=== PATIENT | male | born 1955 | race Caucasian/White ===

== ENCOUNTER → 2020-03-08 12:04 | Outpatient (CLI) | payer OTHER, SELFPAY ==
[2020-03-08 14:02] LABS: Prostate Specific Antigen 0.872 ng/mL (0.10-4.00)
== END ==
PROVIDERS: Referring Provider Specialist; Visit Provider Specialist
DX: N40.0 Benign prostatic hyperplasia without lower urinary tract symptoms (principal)
CPT/HCPCS: 36415; 84153

== ENCOUNTER → 2021-05-16 10:32 | Outpatient (CLI) | payer MEDICARE, OTHER, SELFPAY ==
[2021-05-16 11:58] LABS: Prostate Specific Antigen 1.04 ng/mL (0.10-4.00)
== END ==
PROVIDERS: Referring Provider Specialist; Visit Provider Specialist
DX: N40.1 Benign prostatic hyperplasia with lower urinary tract symptoms (principal); N13.8 Other obstructive and reflux uropathy; Z87.440 Personal history of urinary (tract) infections; Z80.42 Family history of malignant neoplasm of prostate
CPT/HCPCS: 36415; 51798; 81002; 84153; 99213

== ENCOUNTER → 2022-05-03 09:14 | Outpatient (CLI) | payer MEDICARE, OTHER, SELFPAY | PROVIDERS: Referring Provider Specialist; Visit Provider Specialist | DX: N40.1 Benign prostatic hyperplasia with lower urinary tract symptoms (principal); N13.8 Other obstructive and reflux uropathy; Z87.440 Personal history of urinary (tract) infections | CPT/HCPCS: 36415; 51798; 81002; 84153; 99213 ==

== ENCOUNTER → 2023-04-16 08:42 | Outpatient (CLI) | payer MEDICARE, OTHER, SELFPAY ==
[2023-04-16 10:06] LABS: Prostate Specific Antigen 1.26 ng/mL (0.10-4.00)
== END ==
PROVIDERS: Referring Provider Specialist; Visit Provider Specialist
DX: N40.1 Benign prostatic hyperplasia with lower urinary tract symptoms (principal); N13.8 Other obstructive and reflux uropathy; N52.1 Erectile dysfunction due to diseases classified elsewhere; Z80.42 Family history of malignant neoplasm of prostate; Z87.440 Personal history of urinary (tract) infections
CPT/HCPCS: 36415; 51798; 81002; 84153; 99215

== ENCOUNTER → 2024-03-10 09:33 | Outpatient (CLI) | payer MEDICARE, OTHER, SELFPAY ==
[2024-03-10 11:16] LABS: Prostate Specific Antigen Scrn 1.51 ng/mL (0.1-4.0)
== END ==
PROVIDERS: Referring Provider Urology; Visit Provider Urology
DX: Z12.5 Encounter for screening for malignant neoplasm of prostate (principal)
CPT/HCPCS: 36415; G0103